=== PATIENT | female | born 1990 | race Caucasian/White ===

== ENCOUNTER 2017-08-23 10:58 | Emergency (ER) | payer OTHER ==
[2017-08-23 11:11] VITALS: BP 129/90
[2017-08-23] MEDS ORDERED: IBUPROFEN 200 MG TAB PO ONE (11:14)
--- NOTE | 2017-08-23 11:19 | EDPHY ---
H & P Stated Complaint: ptmohamud gonzalez was chasing dog last noc,rolled rt ankle,swelling and pain Time Seen by Provider: 08/23/17 11:09 HPI/ROS: CHIEF COMPLAINT: Right ankle pain HISTORY OF PRESENT ILLNESS: Patient is a 26-year-old female who comes to the emerged department complaining of right ankle pain. She states that yesterday she was chasing her dog and twisted her ankle. Today she has bruising to the dorsum of her right foot just distally to the lateral malleolus. Also mild swelling. She is able to bear weight but walks with a limp. She denies other injuries. She denies pain over the metatarsal bones or tib-fib region. REVIEW OF SYSTEMS: Constitutional: denies: chills, fever, recent illness, recent injury EENTM: denies: blurred vision, double vision, nose congestion Respiratory: denies: cough, shortness of breath Cardiac: denies: chest pain, irregular heart rate, lightheadedness, palpitations Gastrointestinal/Abdominal: denies: abdominal pain, diarrhea, nausea, vomiting, blood streaked stools Genitourinary: denies: dysuria, frequency, hematuria, pain Musculoskeletal: See HPI Skin: denies: lesions, rash, jaundice, bruising Neurological: denies: headache, numbness, paresthesia, tingling, dizziness, weakness Hematologic/Lymphatic: denies: blood clots, easy bleeding, easy bruising Immunologic/allergic: denies: HIV/AIDS, transplant EXAM: GENERAL: Well-appearing, well-nourished and in no acute distress. HEAD: Atraumatic, normocephalic. EYES: Pupils equal round and reactive to light, extraocular movements intact, sclera anicteric, conjunctiva are normal. ENT: TMs normal, nares patent, oropharynx clear without exudates. Moist mucous membranes. NECK: Normal range of motion, supple without lymphadenopathy or JVD. LUNGS: Breath sounds clear to auscultation bilaterally and equal. No wheezes rales or rhonchi. HEART: Regular rate and rhythm without murmurs, rubs or gallops. ABDOMEN: Soft, nontender, normoactive bowel sounds. No guarding, no rebound. No masses appreciated. BACK: No CVA tenderness, no spinal tenderness, step-offs or deformities EXTREMITIES: Bruising as described above, moderate swelling, normal pulses and sensation distally. Pain with extension of foot. NEUROLOGICAL: Cranial nerves II through XII grossly intact. Normal speech, normal gait. 5/5 strength, normal movement in all extremities, normal sensation PSYCH: Normal mood, normal affect. SKIN: Warm, dry, normal turgor, no visible rashes or lesions. Source: Patient Exam Limitations: No limitations - Personal History LMP (Females 10-55): 1-7 Days Ago Current Tetanus Diphtheria and Acellular Pertussis (TDAP): Yes Tetanus Vaccine Date: 2010 - Medical/Surgical History Hx Asthma: No Hx Chronic Respiratory Disease: No Hx Diabetes: No Hx Cardiac Disease: No Hx Renal Disease: No Hx Cirrhosis: No Hx Alcoholism: No Hx HIV/AIDS: No Hx Splenectomy or Spleen Trauma: No Other PMH: Med hx-none. Surg-sinus surg - Family History Significant Family History: No pertinent family hx - Social History Smoking Status: Never smoked Alcohol Use: Sober Drug Use: None Constitutional: Initial Vital Signs Temperature (C) 37.1 C 08/23/17 11:06 Heart Rate 80 08/23/17 11:06 Respiratory Rate 16 08/23/17 11:06 Blood Pressure 129/90 H 08/23/17 11:06 O2 Sat (%) 96 08/23/17 11:06 O2 Delivery Mode Room Air Allergies/Adverse Reactions: lactose [Lactose] Allergy (Verified 08/23/17 11:06) Home Medications: Medication Instructions Recorded NK [No Known Home Meds] 08/23/17 Medical Decision Making - Diagnostics Imaging Results: Imaging Impressions Ankle X-Ray 08/23/17 11:18 Impression: Negative. No acute fracture. Imaging: I viewed and interpreted images myself (Negative for fracture) Procedures: Procedure: Splint placement. A air ankle splint was applied. After application of the splint I returned and re-examined the patient. The splint was adequately immobilizing the joint and distal to the splint the patient's circulation and sensation was intact. ED Course/Re-evaluation: Patient is reassured by her x-rays. She was placed in an air ankle brace and given crutches to wean as tolerated. She is happy with this and declines further workup or testing at this time. Differential Diagnosis: Partial list of the Differential diagnosis considered include but were not limited to; fracture, sprain and although unlikely based on the history and physical exam, I also considered infection vascular injury, nerve injury, foot fracture, tib-fib fracture. I discussed these differential diagnoses and the plan with the patient as well as the usual and expected course. The patient understands that the diagnosis is provisional and that in medicine we are not always correct and that further workup is often warranted. Usual and customary warnings were given. All of the patient's questions were answered. The patient was instructed to return to the emergency department should the symptoms at all worsen or return, otherwise to followup with the physician as we discussed. - Data Points Medications Given: Discontinued Medications Ibuprofen (Motrin) 400 mg PO EDNOW ONE Stop: 08/23/17 11:15 Last Admin: 08/23/17 11:16 Dose: 400 mg Departure - Departure Disposition: Home, Routine, Self-Care Clinical Impression: Sprain of right ankle Qualifiers: Encounter type: initial encounter Involved ligament of ankle: unspecified ligament Qualified Code(s): S93.401A - Sprain of unspecified ligament of right ankle, initial encounter Condition: Fair Instructions: Ankle Sprain (DC) Referrals: NONE *PRIMARY CARE P,. [Primary Care Provider] - As per Instructions Zaheer Morales MD [Medical Doctor] - As per Instructions
== END 2017-08-23 11:53 | disposition home or self-care (01) ==
LOC: CED 10:58
DX: S93.401A Sprain of unspecified ligament of right ankle, initial encounter (principal); X50.9XXA Other and unspecified overexertion or strenuous movements or postures, initial encounter; Y99.8 Other external cause status; Y93.02 Activity, running
CPT/HCPCS: 73610-PO; L4350